=== PATIENT | male | born 1970 | race Native Hawaiian/Other Pacific Islander ===

== ENCOUNTER 2020-01-23 12:19 | Inpatient (IN) ==
[~2020-01-23 12:19] MED LIST: Acetaminophen IV 1,000 MG/100 ML INFUS..BTL IVPB ONE; Povidone-Iodine 45 ML, Sodium Chloride IRRigation 1,000 ML IR ONE; Pregabalin 75 MG CAPSULE PO ONE; TOTAL JOINT MIXTURE (100ML) INTRAART ONE
[2020-01-23] MEDS ORDERED: Lidocaine -MPF 2% 2 ML VIAL ONE (12:29)
[2020-01-23] MEDS ORDERED: Tranexamic Acid 1,000 MG/10 ML VIAL ONE (12:29)
[2020-01-23] MEDS ORDERED: Vancomycin 1,000 MG VIAL ONE (12:45)
[2020-01-23] MEDS ORDERED: Ethanol\\Acetic Acid\\Na Ace\\Ben 1,000 ML IRRIG.SOLN IR ONE (12:45)
[2020-01-23] MEDS ORDERED: *HR* Midazolam HCl 2 MG/2 ML VIAL ONE (12:47)
[2020-01-23] MEDS ORDERED: *HR* FentaNYL (PF) 100 MCG/2 ML VIAL ONE (12:48)
[2020-01-23] MEDS ORDERED: Ropivacaine/PF 0.5% 30 ML VIAL ONE (12:49)
[2020-01-23] MEDS ORDERED: Ondansetron 4 MG/2 ML VIAL IVP PRN ×2 (13:08→16:42)
[2020-01-23] MEDS ORDERED: Promethazine 6.25 MG in Water for inj. (sterile) 20 ML IVPB PRN (13:08)
[2020-01-23] MEDS ORDERED: *HR* Meperidine 25 MG/ML SYRINGE IVP PRN (13:08)
[2020-01-23] MEDS ORDERED: *HR* HYDROmorphone PF 0.5 MG/0.5 ML SYRINGE IVP PRN (13:08)
[2020-01-23] MEDS ORDERED: CeFAZolin Syr 3,000MG/30 ML 3,000 MG/30 ML SYRINGE IVPB ONE (13:19)
[2020-01-23] MEDS ORDERED: Ringers Solution, Lactated 1,000 ML IVC SCH ×2 (13:30→16:42)
[2020-01-23 15:55] LABS: Hematocrit 43.5 % (37.5-50.1); Hemoglobin 14.4 g/dL (12.9-16.9)
[2020-01-23] MEDS ORDERED: *HR* Promethazine 25 MG/ML VIAL IM PRN (16:42)
[2020-01-23] MEDS ORDERED: Sennosides 8.6 MG TABLET PO PRN (16:42)
[2020-01-23] MEDS ORDERED: Naloxone 0.4 MG/ML INJ IVP PRN (16:42)
[2020-01-23] MEDS ORDERED: D5% in Water 1,000 ML IVC PRN (16:42)
[2020-01-23] MEDS ORDERED: MOM Conc 10 ML UD.LIQ PO PRN (16:42)
[2020-01-23] MEDS ORDERED: *HR* Dextrose 50 % in Water (Vial) 50 ML VIAL IVP PRN (16:42)
[2020-01-23] MEDS ORDERED: SILDENAFIL CITRATE 100 MG PO PRN (16:42)
[2020-01-23] MEDS ORDERED: Dextrose Gel 15 GM/37.5 ML TUBE PO PRN ×2 (16:42)
[2020-01-23] MEDS: Insulin LISPRO 300 UNITS/3 ML VIAL SQ SCH ×2 (17:47→22:41)
[2020-01-23] MEDS: *HR* OxyCODONE Immed Rel 5 MG TABLET PO PRN ×2 (18:33→22:39)
[2020-01-23] MEDS: Nicotine 14 MG PATCH.TD24 TD SCH (18:34)
[2020-01-23] MEDS: Ascorbic Acid 500 MG TABLET PO SCH (18:34)
[2020-01-23] MEDS: lamoTRIgine 100 MG TABLET PO SCH (19:59)
[2020-01-23] MEDS: HYDROcodone BIT/Homatropine 5 MG TABLET PO PRN (19:59)
[2020-01-23] MEDS: ceFAZolin 3,000 MG in 0.9 % Sodium Chloride 100 ML IVPB SCH (20:00)
[2020-01-23] MEDS: QUEtiapine Fumarate 100 MG TABLET PO SCH (22:39)
[2020-01-23] MEDS: traZODone 50 MG TABLET PO SCH (22:40)
[2020-01-24] MEDS: HYDROcodone BIT/Homatropine 5 MG TABLET PO PRN ×3 (01:01→21:13)
[2020-01-24] MEDS: *HR* OxyCODONE Immed Rel 5 MG TABLET PO PRN ×4 (03:17→18:37)
[2020-01-24] MEDS: ceFAZolin 3,000 MG in 0.9 % Sodium Chloride 100 ML IVPB SCH (05:03)
[2020-01-24] MEDS: Multivit/Ca/Min/Fe/FA 1 TAB TABLET PO SCH (07:22)
[2020-01-24] MEDS: Insulin LISPRO 300 UNITS/3 ML VIAL SQ SCH ×4 (07:23→21:13)
[2020-01-24] MEDS: Ascorbic Acid 500 MG TABLET PO SCH ×2 (07:23→17:06)
[2020-01-24] MEDS ORDERED: *HR* OxyCODONE Immed Rel 5 MG TABLET PO ONE (10:20)
[2020-01-24] MEDS: Ketorolac 30 MG/ML VIAL IVP PRN ×2 (10:43→21:12)
[2020-01-24] MEDS: Aspirin Enteric Coated 81 MG Tablet PO SCH (15:01)
[2020-01-24 16:37] LABS: Immature Granulocytes % 0.5 % (0-4); Red Blood Count 3.97 M/mcL (4.19-5.50)
[2020-01-24 16:39] LABS: Basophils % 0.3 %; Eosinophils % 0.5 %; Hematocrit 37.4 % (37.5-50.1); Hemoglobin 12.9 g/dL (12.9-16.9); Immature Platelets 2.5 % (1.1-6.1); Lymphocytes # 1.9 K/mcL (0.6-4.6); Lymphocytes % 24.8 %; Mean Corpuscular HGB Conc 34.5 g/dL (31.6-35.5); Mean Corpuscular Hemoglobin 32.5 pg (28.0-33.3); Mean Corpuscular Volume 94.2 fL (83.0-100.0); Mean Platelet Volume 10.2 fL (9.4-12.4); Monocytes # 0.9 K/mcL (0.0-1.3); Neutrophils # 4.8 K/mcL (1.6-8.9); Platelet Count 143 K/mcL (140-400); Red Cell Distribution Width 12.7 % (11.5-14.5); Segmented Neutrophils % 61.9 %; White Blood Count 7.8 K/mcL (4.3-11.1)
[2020-01-24 16:48] LABS: BUN/Creatinine Ratio 19 (6-26); Blood Urea Nitrogen 12 mg/dL (6-20); Calcium 8.8 mg/dL (8.6-10.3); Carbon Dioxide 25 mEq/L (23-29); Chloride 106 mEq/L (98-107); Glucose 144 mg/dL (70-105); Osmolality,Calculated 282 (280-300); Sodium 135 mEq/L (136-145); eGFR For African Americans > 60 (> 60); eGFR For Non-African Americans > 60 (> 60)
[2020-01-24] MEDS: Nicotine 14 MG PATCH.TD24 TD SCH (17:06)
[2020-01-24] MEDS: lamoTRIgine 100 MG TABLET PO SCH (21:13)
[2020-01-24] MEDS: traZODone 50 MG TABLET PO SCH (22:53)
[2020-01-24] MEDS: QUEtiapine Fumarate 100 MG TABLET PO SCH (22:53)
[2020-01-25] MEDS: *HR* OxyCODONE Immed Rel 5 MG TABLET PO PRN ×4 (01:40→20:49)
[2020-01-25] MEDS: Ketorolac 30 MG/ML VIAL IVP PRN (06:15)
[2020-01-25 07:02] LABS: Basophils % 0.5 %; Eosinophils # 0.1 K/mcL (0.0-0.6); Eosinophils % 0.7 %; Hematocrit 39.1 % (37.5-50.1); Immature Granulocytes % 0.5 % (0-4); Lymphocytes # 1.8 K/mcL (0.6-4.6); Lymphocytes % 23.5 %; Mean Corpuscular HGB Conc 33.2 g/dL (31.6-35.5); Mean Corpuscular Hemoglobin 31.6 pg (28.0-33.3); Mean Corpuscular Volume 94.9 fL (83.0-100.0); Mean Platelet Volume 10.5 fL (9.4-12.4); Monocytes # 0.9 K/mcL (0.0-1.3); Monocytes % 12.2 %; Neutrophils # 4.7 K/mcL (1.6-8.9); Platelet Count 147 K/mcL (140-400); Red Blood Count 4.12 M/mcL (4.19-5.50); Red Cell Distribution Width 12.8 % (11.5-14.5); Segmented Neutrophils % 62.6 %; White Blood Count 7.5 K/mcL (4.3-11.1)
[2020-01-25 07:28] LABS: BUN/Creatinine Ratio 17 (6-26); Blood Urea Nitrogen 12 mg/dL (6-20); Calcium 9.3 mg/dL (8.6-10.3); Carbon Dioxide 26 mEq/L (23-29); Chloride 103 mEq/L (98-107); Glucose 121 mg/dL (70-105); Osmolality,Calculated 281 (280-300); Potassium 3.8 mEq/L (3.5-5.1); Sodium 135 mEq/L (136-145); eGFR For African Americans > 60 (> 60); eGFR For Non-African Americans > 60 (> 60)
[2020-01-25] MEDS: Aspirin Enteric Coated 81 MG Tablet PO SCH (08:23)
[2020-01-25] MEDS: Insulin LISPRO 300 UNITS/3 ML VIAL SQ SCH ×4 (08:24→21:09)
[2020-01-25] MEDS: Ascorbic Acid 500 MG TABLET PO SCH ×2 (08:24→16:31)
[2020-01-25] MEDS: Multivit/Ca/Min/Fe/FA 1 TAB TABLET PO SCH (08:24)
[2020-01-25] MEDS: Nicotine 14 MG PATCH.TD24 TD SCH (16:31)
[2020-01-25] MEDS: HYDROcodone BIT/Homatropine 5 MG TABLET PO PRN (18:28)
[2020-01-25] MEDS: lamoTRIgine 100 MG TABLET PO SCH (19:32)
[2020-01-25] MEDS: traZODone 50 MG TABLET PO SCH (22:37)
[2020-01-25] MEDS: QUEtiapine Fumarate 100 MG TABLET PO SCH (22:37)
[2020-01-26] MEDS: Ketorolac 30 MG/ML VIAL IVP PRN (01:26)
[2020-01-26 04:51] LABS: Hematocrit 34.5 % (37.5-50.1); Immature Granulocytes % 0.6 % (0-4); Lymphocytes % 27.3 %; Mean Corpuscular HGB Conc 34.8 g/dL (31.6-35.5); Mean Corpuscular Hemoglobin 32.4 pg (28.0-33.3); Mean Corpuscular Volume 93.2 fL (83.0-100.0); Mean Platelet Volume 9.8 fL (9.4-12.4); Monocytes % 9.9 %; Platelet Count 136 K/mcL (140-400); Red Cell Distribution Width 12.7 % (11.5-14.5); Segmented Neutrophils % 60.9 %
[2020-01-26 04:52] LABS: Basophils % 0.6 %; Eosinophils # 0.1 K/mcL (0.0-0.6); Eosinophils % 0.7 %; Lymphocytes # 1.9 K/mcL (0.6-4.6); Monocytes # 0.7 K/mcL (0.0-1.3); Neutrophils # 4.3 K/mcL (1.6-8.9)
[2020-01-26] MEDS: HYDROcodone BIT/Homatropine 5 MG TABLET PO PRN ×2 (04:54→16:48)
[2020-01-26 05:06] LABS: BUN/Creatinine Ratio 19 (6-26); Blood Urea Nitrogen 12 mg/dL (6-20); Calcium 9.2 mg/dL (8.6-10.3); Carbon Dioxide 24 mEq/L (23-29); Chloride 105 mEq/L (98-107); Glucose 110 mg/dL (70-105); Osmolality,Calculated 284 (280-300); Potassium 3.9 mEq/L (3.5-5.1); Sodium 137 mEq/L (136-145); eGFR For African Americans > 60 (> 60); eGFR For Non-African Americans > 60 (> 60)
[2020-01-26] MEDS: Gabapentin 300 MG CAPSULE PO SCH ×3 (08:06→20:08)
[2020-01-26] MEDS: Aspirin Enteric Coated 81 MG Tablet PO SCH (08:07)
[2020-01-26] MEDS: Ascorbic Acid 500 MG TABLET PO SCH ×2 (08:07→16:48)
[2020-01-26] MEDS: Insulin LISPRO 300 UNITS/3 ML VIAL SQ SCH ×4 (08:07→20:11)
[2020-01-26] MEDS: Multivit/Ca/Min/Fe/FA 1 TAB TABLET PO SCH (08:07)
[2020-01-26] MEDS: *HR* Rivaroxaban 15 MG TABLET PO SCH ×2 (11:18→16:49)
[2020-01-26] MEDS: Nicotine 14 MG PATCH.TD24 TD SCH (16:48)
[2020-01-26] MEDS: QUEtiapine Fumarate 100 MG TABLET PO SCH (20:08)
[2020-01-26] MEDS: lamoTRIgine 100 MG TABLET PO SCH (20:09)
[2020-01-26] MEDS: traZODone 50 MG TABLET PO SCH (20:09)
[2020-01-27] MEDS: HYDROcodone BIT/Homatropine 5 MG TABLET PO PRN (02:40)
[2020-01-27] MEDS: Insulin LISPRO 300 UNITS/3 ML VIAL SQ SCH ×4 (08:15→21:55)
[2020-01-27] MEDS: Ascorbic Acid 500 MG TABLET PO SCH ×2 (08:16→18:01)
[2020-01-27] MEDS: Gabapentin 300 MG CAPSULE PO SCH ×3 (08:16→21:53)
[2020-01-27] MEDS: Multivit/Ca/Min/Fe/FA 1 TAB TABLET PO SCH (08:16)
[2020-01-27] MEDS: *HR* Rivaroxaban 15 MG TABLET PO SCH ×2 (08:16→18:01)
[2020-01-27] MEDS: Nicotine 14 MG PATCH.TD24 TD SCH (18:01)
[2020-01-27] MEDS: QUEtiapine Fumarate 100 MG TABLET PO SCH (21:54)
[2020-01-27] MEDS: traZODone 50 MG TABLET PO SCH (21:54)
[2020-01-27] MEDS: lamoTRIgine 100 MG TABLET PO SCH (21:54)
[2020-01-28] MEDS: Insulin LISPRO 300 UNITS/3 ML VIAL SQ SCH ×4 (08:42→21:11)
[2020-01-28] MEDS: Ascorbic Acid 500 MG TABLET PO SCH ×2 (08:47→17:04)
[2020-01-28] MEDS: Multivit/Ca/Min/Fe/FA 1 TAB TABLET PO SCH (08:47)
[2020-01-28] MEDS: Gabapentin 300 MG CAPSULE PO SCH ×3 (08:47→21:07)
[2020-01-28] MEDS: *HR* Rivaroxaban 15 MG TABLET PO SCH ×2 (08:47→17:04)
[2020-01-28] MEDS: Nicotine 14 MG PATCH.TD24 TD SCH (17:05)
[2020-01-28] MEDS: traZODone 50 MG TABLET PO SCH (21:07)
[2020-01-28] MEDS: QUEtiapine Fumarate 100 MG TABLET PO SCH (21:07)
[2020-01-28] MEDS: lamoTRIgine 100 MG TABLET PO SCH (21:11)
[2020-01-29] MEDS: *HR* Rivaroxaban 15 MG TABLET PO SCH ×2 (08:47→16:02)
[2020-01-29] MEDS: Multivit/Ca/Min/Fe/FA 1 TAB TABLET PO SCH (08:47)
[2020-01-29] MEDS: Ascorbic Acid 500 MG TABLET PO SCH ×2 (08:47→16:02)
[2020-01-29] MEDS: *HR* OxyCODONE Immed Rel 5 MG TABLET PO PRN (08:47)
[2020-01-29] MEDS: Insulin LISPRO 300 UNITS/3 ML VIAL SQ SCH ×4 (08:48→20:03)
[2020-01-29] MEDS: Gabapentin 300 MG CAPSULE PO SCH ×3 (08:48→20:03)
[2020-01-29] MEDS: Nicotine 14 MG PATCH.TD24 TD SCH (17:26)
[2020-01-29] MEDS: traZODone 50 MG TABLET PO SCH (20:02)
[2020-01-29] MEDS: QUEtiapine Fumarate 100 MG TABLET PO SCH (20:02)
[2020-01-29] MEDS: lamoTRIgine 100 MG TABLET PO SCH (20:03)
[2020-01-30] MEDS: Insulin LISPRO 300 UNITS/3 ML VIAL SQ SCH ×4 (08:19→21:19)
[2020-01-30] MEDS: *HR* Rivaroxaban 15 MG TABLET PO SCH ×2 (09:04→16:16)
[2020-01-30] MEDS: Gabapentin 300 MG CAPSULE PO SCH ×3 (09:04→21:08)
[2020-01-30] MEDS: Ascorbic Acid 500 MG TABLET PO SCH ×2 (09:04→16:15)
[2020-01-30] MEDS: Multivit/Ca/Min/Fe/FA 1 TAB TABLET PO SCH (09:05)
[2020-01-30] MEDS: *HR* OxyCODONE Immed Rel 5 MG TABLET PO PRN ×2 (09:08→16:16)
[2020-01-30] MEDS: Nicotine 14 MG PATCH.TD24 TD SCH (16:15)
[2020-01-30] MEDS: lamoTRIgine 100 MG TABLET PO SCH (21:07)
[2020-01-30] MEDS: traZODone 50 MG TABLET PO SCH (21:07)
[2020-01-30] MEDS: QUEtiapine Fumarate 100 MG TABLET PO SCH (21:07)
[2020-01-31] MEDS: Insulin LISPRO 300 UNITS/3 ML VIAL SQ SCH ×4 (09:09→19:56)
[2020-01-31] MEDS: Ascorbic Acid 500 MG TABLET PO SCH ×2 (09:09→16:06)
[2020-01-31] MEDS: Gabapentin 300 MG CAPSULE PO SCH ×3 (09:09→19:41)
[2020-01-31] MEDS: Multivit/Ca/Min/Fe/FA 1 TAB TABLET PO SCH (09:09)
[2020-01-31] MEDS: *HR* Rivaroxaban 15 MG TABLET PO SCH ×2 (09:09→16:06)
[2020-01-31] MEDS: Nicotine 14 MG PATCH.TD24 TD SCH (16:06)
[2020-01-31] MEDS: HYDROcodone BIT/Homatropine 5 MG TABLET PO PRN (16:10)
[2020-01-31] MEDS: QUEtiapine Fumarate 100 MG TABLET PO SCH (19:41)
[2020-01-31] MEDS: lamoTRIgine 100 MG TABLET PO SCH (19:41)
[2020-01-31] MEDS: traZODone 50 MG TABLET PO SCH (19:41)
[2020-02-01] MEDS: Insulin LISPRO 300 UNITS/3 ML VIAL SQ SCH ×4 (07:25→19:45)
[2020-02-01] MEDS: *HR* Rivaroxaban 15 MG TABLET PO SCH ×2 (07:51→17:41)
[2020-02-01] MEDS: Ascorbic Acid 500 MG TABLET PO SCH ×2 (07:51→17:41)
[2020-02-01] MEDS: Gabapentin 300 MG CAPSULE PO SCH ×3 (07:51→19:43)
[2020-02-01] MEDS: Multivit/Ca/Min/Fe/FA 1 TAB TABLET PO SCH (07:51)
[2020-02-01] MEDS: Nicotine 14 MG PATCH.TD24 TD SCH (17:41)
[2020-02-01] MEDS: QUEtiapine Fumarate 100 MG TABLET PO SCH (19:43)
[2020-02-01] MEDS: traZODone 50 MG TABLET PO SCH (19:44)
[2020-02-01] MEDS: lamoTRIgine 100 MG TABLET PO SCH (19:47)
[2020-02-02] MEDS: *HR* OxyCODONE Immed Rel 5 MG TABLET PO PRN (04:37)
[2020-02-02] MEDS: Ascorbic Acid 500 MG TABLET PO SCH ×2 (07:28→16:15)
[2020-02-02] MEDS: Gabapentin 300 MG CAPSULE PO SCH ×3 (07:28→21:35)
[2020-02-02] MEDS: Multivit/Ca/Min/Fe/FA 1 TAB TABLET PO SCH (07:29)
[2020-02-02] MEDS: *HR* Rivaroxaban 15 MG TABLET PO SCH ×2 (07:29→16:15)
[2020-02-02] MEDS: Insulin LISPRO 300 UNITS/3 ML VIAL SQ SCH ×4 (07:37→21:36)
[2020-02-02] MEDS: Nicotine 14 MG PATCH.TD24 TD SCH (16:15)
[2020-02-02] MEDS: traZODone 50 MG TABLET PO SCH (21:35)
[2020-02-02] MEDS: QUEtiapine Fumarate 100 MG TABLET PO SCH (21:35)
[2020-02-02] MEDS: lamoTRIgine 100 MG TABLET PO SCH (21:36)
[2020-02-02] MEDS: HYDROcodone BIT/Homatropine 5 MG TABLET PO PRN (21:41)
[2020-02-03] MEDS: Gabapentin 300 MG CAPSULE PO SCH ×2 (07:25→15:19)
[2020-02-03] MEDS: *HR* Rivaroxaban 15 MG TABLET PO SCH ×2 (07:26→15:19)
[2020-02-03] MEDS: Ascorbic Acid 500 MG TABLET PO SCH ×2 (07:26→15:19)
[2020-02-03] MEDS: Multivit/Ca/Min/Fe/FA 1 TAB TABLET PO SCH (07:26)
[2020-02-03] MEDS: Insulin LISPRO 300 UNITS/3 ML VIAL SQ SCH ×2 (07:26→11:24)
[2020-02-03 10:40] VITALS: BP 167/99
[2020-02-03 13:47] LABS: Adenovirus Not Detected (Not Detect); Coronavirus 229E Not Detected (Not Detect); Coronavirus HKU1 Not Detected (Not Detect); Coronavirus NL63 Not Detected (Not Detect); Coronavirus OC43 Not Detected (Not Detect); Human Metapneumovirus Not Detected (Not Detect); Human Rhinovirus/Enterovirus Not Detected (Not Detect); Influenza A Subtype 2009 H1 Not Detected (Not Detect); Influenza B Not Detected (Not Detect); Parainfluenza Virus 1 Not Detected (Not Detect); Parainfluenza Virus 2 Not Detected (Not Detect); Parainfluenza Virus 3 Not Detected (Not Detect); SARS-CoV-2 Not Detected (Not Detect)
[2020-02-03 13:48] LABS: Bordetella Pertussis Not Detected (Not Detect); Chlamydophila pneumoniae Not Detected (Not Detect); Mycoplasma pneumoniae Not Detected (Not Detect); Parainfluenza Virus 4 Not Detected (Not Detect); Respiratory Syncytial Virus Not Detected (Not Detect)
[2020-02-03] MEDS: Nicotine 14 MG PATCH.TD24 TD SCH (15:21)
[2020-02-16] MEDS ORDERED: *HR* Rivaroxaban 10 MG TABLET PO SCH (17:00)
== END 2020-02-03 15:45 | DRG 470 ==
LOC: SAMDAY 12:19 → 3NENU 12:19
PROVIDERS: ADMIT Orthopaedic Surgery; ATTEND Orthopaedic Surgery